=== PATIENT | male | born 1975 | race African-American/Black ===

== ENCOUNTER 2021-10-26 10:57 | Emergency (ER) | payer SELFPAY ==
[~2021-10-26] VITALS: Ht 177.8 cm; Wt 86.0 kg
[2021-10-26] MEDS ORDERED: IBUPROFEN 600MG TABLET PO STA (11:04)
[2021-10-26 12:42] LABS: CHLORIDE 106 mEq/L (98-107)
[2021-10-26] MEDS ORDERED: IBUPROFEN 600MG TABLET PO NR (13:00)
[2021-10-26 13:24] VITALS: BP 148/72
[2021-10-26 13:58] LABS: CLARITY URINE CLEAR (CLEAR); COLOR URINE YELLOW (YELLOW); KETONES URINE NEGATIVE (NEGATIVE); LEUKOCYTE ESTERASE URINE NEGATIVE (NEGATIVE); NITRITE URINE NEGATIVE (NEGATIVE); OCCULT BLOOD URINE NEGATIVE (NEGATIVE); PROTEIN URINE NEGATIVE (NEGATIVE); SPECIFIC GRAVITY URINE 1.016 (1.005-1.030)
[2021-10-26] MEDS ORDERED: CYCL10TA21 MT (14:11)
[2021-10-26] MEDS ORDERED: IBUP-2029 MT (14:11)
== END 2021-10-26 15:20 | disposition home or self-care (01) ==
LOC: ER 10:57 → EDBD 10:57 → ER 15:20
DX: R10.9 Unspecified abdominal pain (principal); M54.9 Dorsalgia, unspecified
CPT/HCPCS: 36415; 80053; 81003; 99291